=== PATIENT | female | born 1985 | race American Indian/Alaskan Native ===

== ENCOUNTER 2018-04-10 11:14 | Emergency (ER) | payer OTHER ==
[2018-04-10 11:52] VITALS: BP 133/96
--- NOTE | 2018-04-10 13:14 | XRay Report ---
LEFT KNEE, 3 views: History: Knee injury. The bony architecture is intact without evidence of fracture or dislocation. No significant soft tissue abnormality is seen. IMPRESSION: Normal left knee.
[2018-04-10] MEDS ORDERED: MOTRIN PO ONE (14:19)
[2018-04-10] MEDS ORDERED: TYLENOL PO ONE (14:19)
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
== END 2018-04-10 15:19 | disposition home or self-care (01) ==
LOC: ED 11:14
DX: M25.562 Pain in left knee (principal); V49.9XXA Car occupant (driver) (passenger) injured in unspecified traffic accident, initial encounter; Y93.89 Activity, other specified; Y92.89 Other specified places as the place of occurrence of the external cause; Y99.8 Other external cause status
CPT/HCPCS: 99284